=== PATIENT | male | born 1990 | race Caucasian/White ===

== ENCOUNTER 2018-11-16 21:57 | Emergency (ER) | payer OTHER ==
[~2018-11-16] VITALS: Ht 172.7 cm; Wt 90.7 kg
--- NOTE | 2018-11-16 22:09 | NUR ---
Patient to ER bed 02 to gown for evaluation. Side rails up.
[2018-11-16 22:16] VITALS: BP_SYST 137
--- NOTE | 2018-11-16 22:16 | NUR ---
Pt ambulatory to bed 2 for evaluation
--- NOTE | 2018-11-16 22:20 | NUR ---
Pt is a 28 y/o male who comes into the ER with complaints of sudden onset left ear and left-sided headache pressure around 1600 today while talking to a coworker. Pt concerns he believes he tore his left eardrum. Pt reports he zoned but denies blurry vision. His coworker reportedly said the pt's face turned white. At this time pt says he feels a little out of it and was feeling nauseous and a little vomitting x2. He went to urgent care today and got a chest xray and ekg that came back normal and v/s were fine. Pt does not take medications and denies being allergic to any medications as well. Pt denies syncope, head injuries, headache, hearing changes or loos, chest pain, sob. Will cont to monitor pt.
--- NOTE | 2018-11-16 22:30 | NUR ---
Laura suarez in ED - 11/16/18 at 2248 by SHAW PRIYA Villa at bedside examining patient.
--- NOTE | 2018-11-16 22:48 | NUR ---
ER Dr. Villa at bedside examining patient.
--- NOTE | 2018-11-17 | NUR ---
Pt in bed with eyes open resting comfortably. No signs of acute distress or discomfort noted. Family at bedside. Will cont to monitor pt.
[2018-11-17 00:13] LABS: BASOPHILS % (AUTO) 0.4 % (0.0-2.0); EOSINOPHILS # (AUTO) 0.5 K/uL (0.0-0.4); EOSINOPHILS % (AUTO) 6.8 % (0.0-4.0); HEMATOCRIT 41.2 % (36-54); HEMOGLOBIN 14.4 g/dL (14.0-18.0); LYMPHOCYTES # (AUTO) 2.5 K/uL (1.0-5.5); LYMPHOCYTES % (AUTO) 36.3 % (20.5-51.5); MEAN CORPUSCULAR HEMOGLOBIN 33 pg (27-31); MEAN CORPUSCULAR HGB CONC 35 % (32-36); MEAN CORPUSCULAR VOLUME 94 fL (79.0-98.0); MONOCYTES # (AUTO) 0.8 K/uL (0.0-1.0); NEUTROPHILS # (AUTO) 3.1 K/uL (1.8-7.7); NEUTROPHILS % (AUTO) 45.5 % (40.0-70.0); PLATELET COUNT (AUTO) 219 K/uL (130-430); RED BLOOD CELL COUNT(AUTO) 4.39 MIL/uL (4.2-6.2); RED CELL DISTRIBUTION WIDTH 12.2 % (9.0-15.0); WHITE BLOOD COUNT (AUTO) 6.9 K/uL (4.8-10.8)
[2018-11-17 00:18] LABS: CALCIUM 8.5 mg/dL (8.4-11.0); CREATININE 1.39 mg/dL (0.55-1.30); POTASSIUM 3.8 mmol/L (3.5-5.1)
[2018-11-17 00:32] LABS: ALBUMIN 3.7 g/dL (3.4-4.8); TOTAL BILIRUBIN 0.3 mg/dL (0.0-1.0)
--- NOTE | 2018-11-17 00:58 | NUR ---
ER Dr. Villa at bedside speaking with patient.
[2018-11-17 01:18] VITALS: BP_SYST 137
--- NOTE | 2018-11-17 01:18 | NUR ---
Patient given written and verbal discharge instructions and verbalizes understanding. ER MD Dr. Villa discussed with patient the results and treatment provided. Patient in stable condition. ID arm band removed. Patient educated on pain management and to follow up with PMD. Pain Scale 0/10. Opportunity for questions provided and answered. Medication side effect fact sheet provided.
== END 2018-11-17 01:18 | disposition home or self-care (01) ==
LOC: SED 21:57
DX: E03.9 Hypothyroidism, unspecified (principal)
CPT/HCPCS: 36415; 80053; 84443-TC; 85025; 99283